=== PATIENT | male | born 1990 | race Caucasian/White ===

== ENCOUNTER → 2016-03-01 | Outpatient (CLI) | payer OTHER ==
[2016-03-01 12:57] LABS: BASO % 0.2 %; BASO ABS # 0.01 K/uL (0-0.2); COMPLETE YES; EOS % 2.4 %; HEMATOCRIT 43.4 % (42-52); IG% 0.2 %; LYMPH % 35.3 %; LYMPH ABS # 2.05 K/uL (1.2-3.4); MEAN CELL VOLUME 82.4 fL (80-100); MEAN CORPUSCULAR HEMOGLOBIN 29.4 pg (25-34); MEAN CORPUSCULAR HGB CONC 35.7 g/dl (32-36); MEAN PLATELET VOLUME 9.8 fL (7.4-10.4); MONO % 3.8 %; NEUT % 58.1 %; PLATELET COUNT 170 K/uL (130-400); RED BLOOD COUNT 5.27 M/uL (4.7-6.1); WHITE BLOOD COUNT 5.81 K/uL (4.8-10.8)
[2016-03-01 13:11] LABS: ALT/SGPT 35 U/L (12-78); BLOOD UREA NITROGEN 8 mg/dl (7-18); BUN/CREATININE RATIO 9.2 (10-20); CARBON DIOXIDE 25 mmol/L (21-32); CHLORIDE 106 mmol/L (98-107); CREATININE 0.84 mg/dl (0.60-1.40); GLUCOSE 82 mg/dl (70-99); POTASSIUM 4.2 mmol/L (3.5-5.1); SODIUM 141 mmol/L (136-145)
[2016-03-01 13:14] LABS: ALB/GLOB RATIO 1.3 (0.9-2); ALKALINE PHOSPHATASE 71 U/L (45-117); AST/SGOT 32 U/L (15-37)
== END | disposition home or self-care (01) ==
LOC: C.LAB1850 11:26
PROVIDERS: ATTEND Dermatology
DX: L70.0 Acne vulgaris (principal)

== ENCOUNTER → 2016-03-02 | Outpatient (CLI) | payer OTHER ==
[2016-03-02 12:31] LABS: CHOLESTEROL/HDL RATIO 2.8
== END | disposition home or self-care (01) ==
LOC: C.LAB1850 11:20
PROVIDERS: ATTEND Dermatology
DX: L70.0 Acne vulgaris (principal)

== ENCOUNTER → 2016-05-03 | Outpatient (CLI) | payer OTHER ==
[2016-05-03 09:50] LABS: BASO % 0.3 %; BASO ABS # 0.02 K/uL (0-0.2); COMPLETE YES; EOS % 3.2 %; HEMATOCRIT 43.8 % (42-52); IG% 0.1 %; LYMPH % 40.7 %; LYMPH ABS # 2.81 K/uL (1.2-3.4); MEAN CELL VOLUME 83.4 fL (80-100); MEAN CORPUSCULAR HGB CONC 34.7 g/dl (32-36); MEAN PLATELET VOLUME 9.5 fL (7.4-10.4); MONO % 5.4 %; NEUT % 50.3 %; PLATELET COUNT 202 K/uL (130-400); RED BLOOD COUNT 5.25 M/uL (4.7-6.1)
[2016-05-03 10:08] LABS: CHOLESTEROL/HDL RATIO 4.3
== END | disposition home or self-care (01) ==
LOC: C.LAB1850 07:23
PROVIDERS: ATTEND Dermatology
DX: L70.0 Acne vulgaris (principal)

== ENCOUNTER → 2016-06-14 | Outpatient (CLI) | payer OTHER ==
[2016-06-14 15:54] LABS: BASO % 0.3 %; BASO ABS # 0.02 K/uL (0-0.2); COMPLETE YES; EOS % 3.5 %; HEMATOCRIT 47.3 % (42-52); IG% 0.2 %; LYMPH % 30.8 %; LYMPH ABS # 2.03 K/uL (1.2-3.4); MEAN CELL VOLUME 83.6 fL (80-100); MEAN CORPUSCULAR HEMOGLOBIN 29.3 pg (25-34); MEAN CORPUSCULAR HGB CONC 35.1 g/dl (32-36); MEAN PLATELET VOLUME 9.5 fL (7.4-10.4); MONO % 5.2 %; PLATELET COUNT 217 K/uL (130-400); RED BLOOD COUNT 5.66 M/uL (4.7-6.1); WHITE BLOOD COUNT 6.59 K/uL (4.8-10.8)
[2016-06-14 16:10] LABS: CHOLESTEROL/HDL RATIO 2.5
== END | disposition home or self-care (01) ==
LOC: C.LAB1850 13:49
PROVIDERS: ATTEND Dermatology
DX: L70.0 Acne vulgaris (principal)

== ENCOUNTER → 2016-07-21 | Outpatient (CLI) | payer OTHER ==
[2016-07-21 13:11] LABS: BASO % 0.3 %; BASO ABS # 0.02 K/uL (0-0.2); COMPLETE YES; EOS % 5.8 %; HEMATOCRIT 51.1 % (42-52); IG% 0.2 %; LYMPH % 32.1 %; MEAN CELL VOLUME 83.1 fL (80-100); MEAN CORPUSCULAR HGB CONC 33.7 g/dl (32-36); MEAN PLATELET VOLUME 9.3 fL (7.4-10.4); NEUT % 56.6 %; PLATELET COUNT 201 K/uL (130-400); RED BLOOD COUNT 6.15 M/uL (4.7-6.1); WHITE BLOOD COUNT 6.55 K/uL (4.8-10.8)
[2016-07-21 13:49] LABS: CHOLESTEROL/HDL RATIO 5.1
== END | disposition home or self-care (01) ==
LOC: C.LAB1850 11:31
PROVIDERS: ATTEND Dermatology
DX: L70.0 Acne vulgaris (principal)

== ENCOUNTER → 2016-08-06 | Outpatient (CLI) | payer OTHER ==
[2016-08-06 14:43] LABS: BASO % 0.5 %; BASO ABS # 0.03 K/uL (0-0.2); COMPLETE YES; EOS % 5.4 %; HEMATOCRIT 44.5 % (42-52); LYMPH % 40.4 %; LYMPH ABS # 2.39 K/uL (1.2-3.4); MEAN CORPUSCULAR HEMOGLOBIN 28.5 pg (25-34); MEAN CORPUSCULAR HGB CONC 34.8 g/dl (32-36); MEAN PLATELET VOLUME 9.4 fL (7.4-10.4); MONO % 4.7 %; PLATELET COUNT 175 K/uL (130-400); RED BLOOD COUNT 5.43 M/uL (4.7-6.1); WHITE BLOOD COUNT 5.92 K/uL (4.8-10.8)
[2016-08-06 15:06] LABS: CHOLESTEROL/HDL RATIO 4.7
== END | disposition home or self-care (01) ==
LOC: C.LAB1850 13:09
PROVIDERS: ATTEND Dermatology
DX: L70.0 Acne vulgaris (principal)